=== PATIENT | male | born 1940 | race Caucasian/White ===

== ENCOUNTER 2017-10-16 07:50 | Day surgery (SDC) | payer MEDICARE, BC ==
[~2017-10-16 07:50] MED LIST: ACETAMINOPHEN 1,000 MG/100 ML BTL IV ONE; CEFAZOLIN 2 Gram 2 GM/50 ML BAG IVPB ONE
[2017-10-16] MEDS ORDERED: SEVOFLURANE 250 ML INH ONE (07:51)
[2017-10-16] MEDS ORDERED: MIDAZOLAM HCL 2MG/2ML VIAL IV ONE (07:51)
[2017-10-16] MEDS ORDERED: DEXAMETHASONE 4 MG/ML 1ML VIAL IVP ONE (07:51)
[2017-10-16] MEDS ORDERED: PROPOFOL 10 MG/ML VIAL IV ONE (07:51)
[2017-10-16] MEDS ORDERED: FENTANYL PF 100MCG/2ML VIAL IV ONE (07:51)
[2017-10-16] MEDS ORDERED: ROPIVACAINE HCL (NAROPIN) /PF 5MG/ML 20ML VIAL IV ONE (07:51)
[2017-10-16] MEDS ORDERED: EPINEPHRINE 1 MG/ML AMPUL SQ ONE (07:51)
[2017-10-16] MEDS ORDERED: METOCLOPRAMIDE HCL 10 MG/2 ML VIAL IVP ONE (07:51)
[2017-10-16] MEDS ORDERED: ONDANSETRON HCL IV 4 MG/2 ML VIAL IVP ONE (07:51)
--- NOTE | 2017-10-17 21:53 | Operative Note ---
DATE OF SURGERY: 10/16/2017. PREOPERATIVE DIAGNOSES: 1. LEFT SHOULDER ROTATOR CUFF TEAR. 2. AC JOINT ARTHROSIS. POSTOPERATIVE DIAGNOSES: 1. LEFT SHOULDER ROTATOR CUFF TEAR. 2. AC JOINT ARTHROSIS. 3. BICEPS TENDON PARTIAL TEAR. PROCEDURE: 1. DIAGNOSTIC ARTHROSCOPY. 2. ARTHROSCOPIC ACROMIOPLASTY WITH SUBACROMIAL DECOMPRESSION. 3. ARTHROSCOPIC EXCISION OF THE DISTAL CLAVICLE, AC JOINT 1 CM. 4. ARTHROSCOPIC ROTATOR CUFF REPAIR. 5. ARTHROSCOPIC BICEPS TENOTOMY. SURGEON: LOREN MCCOY M.D. ANESTHESIA: LMA. JENA BARRETT. COMPLICATIONS: NONE. ESTIMATED BLOOD LOSS: MINIMAL. OPERATIVE FINDINGS: A large retracted delaminated rotator cuff tear in the supraspinatus and infraspinatus tendons retracted to the mid portion of the humeral head. Severe shredding and tearing of the biceps tendon. AC joint arthrosis. COMPONENTS PLACED: Four [employer] 5.5 mm Regenesorb anchors with two #2 Ultrabraid sutures and two [employer] lateral anchors loaded with medial row suture sets usman-crossed in a suture bridge configuration. 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 I did his previous rotator cuff in the other shoulder a few years ago. I explained the risks and benefits of surgery in detail for the diagnoses and procedures including but not limited to infection, nerve injury, vessel injury, persistent pain, stiffness, numbness and tingling in his shoulder, periprosthetic fracture, need for resection arthroplasty should the components become infected or loosened, blood clot, need for further procedures, and retear of his rotator cuff. All of his questions were answered. Rehab and course were outlined and he agreed to proceed. PROCEDURE: The patient was brought to the O.R. and placed in the beach chair position for the proper surgery. LMA was induced and the left upper extremity and shoulder were prepped and draped in sterile fashion. The left shoulder was prepped again with ChloraPrep after draped. Intraoperative time-out was performed. Next, the glenohumeral joint, subacromial space, and AC joint were injected with 0.5% Marcaine with Epinephrine. A standard posterior arthroscopic portal was established 2.0 cm inferior and 1.0 cm medial to the posterolateral corner of the acromion. An anterior portal was established with the rotator interval under direct visualization and diagnostic arthroscopy was performed. The biceps tendon was severely shredded and all the way down the bicipital groove. We just cut and released that at this point. The posterior superior labrum had some slight fraying. We debrided that with a shaver. The posterior inferior labrum was normal. Glenoid and humeral head and articular cartilage were normal. The undersurface of the rotator cuff was thoroughly inspected. There was a complete full-thickness tear in the supraspinatus tendon with some retraction and delamination. The barrier was normal. The superior and middle glenohumeral ligaments were intact. The subscap tendon and subscap recess were normal. Anterior inferior labrum normal. Next, the anterior and posterior subacromial portals were established. The tissue ablator was inserted in the anterior subacromial portal and we took off the bursa in the subacromial space and opened up the inferior AC joint capsule. Next, the lateral portal was established off the posterior margin of the AC joint. A shaver was inserted there and we shaved off the bursa around the subacromial and subdeltoid bursa. Next, we inserted a bur there and took off strips of bone working from lateral to medial, anterior to posterior, converting the type II acromion to a planar surface. We used a rasp to smooth the subacromial surface and verify it was flat with a probe from the posterior portal. Next, we inserted the bur in the anterior portal, burred down to the medial acromial facet, resected the distal clavicle 1 cm. We made small stab incision superior to the AC joint. and inserted a shaver there and smoothed both bony surfaces to verify the AC joint was completely free of any bony impingement or bony fragments. Next, we thoroughly inspected the bursal surface and cuff again. There was a large crescent-shaped retracted tear with some delamination. Next, we planned a double-row anchor fixation technique and placed two medial row anchors and two lateral row anchors in the usual fashion. Using a spinal needle, we localized off the acromial edge, punched the tap to prepare the hole and inserted the anchor buried beneath the surface of the bone. With the medial row anchors placed in a mattress fashion working from posterior to anterior and repaired the entire site with four sets of medial row sutures. We saved those sutures for later use in the lateral [employer] SwiveLock equivalent anchors. Next, after the lateral row anchors were placed, we placed one limb of each set of sutures posterior to the medial row to create a Reji-Javon type construct. We tied down to each corresponding medial row with each corresponding lateral row. We cut the lateral row sutures flush to the knot. Next, we saved the sutures from the medial row. We brought one limb from each set through the anterior lateral portal and loaded on our [employer] anchor and tapped down the anchor in the anterior portion over the greater tuberosity edge, tensioned the sutures, engaged the anchor in the hole, and cut them flush usman-crossing the tendon edge and the bursal surface nicely. Then, in the same fashion, we passed the remainder of each limb of medial row sutures to an additional lateral row SwiveLock equivalent anchor, tied the sutures through the eyelet and engaged the eyelet and tapped it in the posterior portion over the greater tuberosity edge of the tear and then tightened that anchor down appropriately. We usman-crossed the suture nicely creating a bridge and tucking down the edge of the cuff on the bursal surface. This completed our procedures. Scope and equipment were removed. The scope incisions were covered with Steri-Strips and we injected a bolus of 0.5% Marcaine with Epinephrine and Exparel. Sterile dressing was applied and UltraSling and ice cooler. The patient tolerated the procedures well. No intraoperative complications. All sponge, needle, and blade counts correct. Recovery room stable, neurovascularly intact. He will be discharged as an outpatient with [facility] Nurse and follow-up in two weeks. cc: Kimberly Mckeon JOB NUMBER: [id number] [facility]
== END 2017-10-16 14:35 | disposition home or self-care (01) ==
LOC: SUR 07:50
PROVIDERS: ATTEND Orthopaedic Surgery
DX: M75.122 Complete rotator cuff tear or rupture of left shoulder, not specified as traumatic (principal); S46.212A Strain of muscle, fascia and tendon of other parts of biceps, left arm, initial encounter; M19.012 Primary osteoarthritis, left shoulder; I10 Essential (primary) hypertension; E78.00 Pure hypercholesterolemia, unspecified
CPT/HCPCS: 93005; C1713; J0171; J2405; J2765